=== PATIENT | female | born 1990 | race Caucasian/White ===

== ENCOUNTER 2022-11-23 06:07 | Emergency (ER) | payer OTHER, SELFPAY ==
--- NOTE | ~2022-11-23 | CT_ITS ---
EXAMINATION: CT abdomen pelvis w con DATE: 11/23/2022 07:41 INDICATION: Left upper quadrant abdominal pain, nausea TECHNIQUE: Computed tomography (CT) of the abdomen and pelvis was performed with 100 CC Omnipaque 350 intravenous contrast. Automated exposure control and iterative reconstruction technique were employe d. Exam dose: 576.67 mGy-cm total exam DLP. COMPARISON: None. FINDINGS: The lung bases are clear. Normal heart size. No pericardial or pleural effusion. Probable s mall hepatic cysts. The liver is otherwise unremarkable. The gallbladder is present and appears margo l. No bile duct or pancreatic duct dilatation. No pancreatic mass lesion or calcification. Normal spl enic size. Normal morphology of the adrenal glands. No renal mass lesion or urinary tract calculus or hydroureteronephrosis. Normal caliber of the abdominal aorta. No intraperitoneal or retroperitoneal or pelvic mass lesion or adenopathy or ascites. There is an involuting peripherally enhancing approximately 1.8 cm right ovarian cyst. The uterus and adnexal areas are otherwise unremarkable. No evidence of appendicitis is detected. There are some fluid levels in the distal ileum and proximal colon which may indicate mild enterocolitis. No bowel wall thickening, pneumatosis or intraperitonea l free air is detected. Small fat-containing umbilical hernia. IMPRESSION: Air-fluid levels of the ileum and proximal colon which may indicate mild enteritis Involuting right ovarian cyst Several small hepatic cysts Reviewed, dictated and finalized at [facility]. Reviewed, dictated and finalized at [facility]. IMPRESSION: Air-fluid levels of the ileum and proximal colon which may indicat e mild enteritis Involuting right ovarian cyst Several small hepatic cysts
[2022-11-23 06:13] VITALS: BP 119/69; PULSE 89; RESP 18; TEMP 36.2; O2SAT 98
[2022-11-23 06:52] LABS: Basophils Percent Auto 0.2 % (0.2-1.2); Eosinophils Percent Auto 0.1 % (0-4.4); Hematocrit 42.7 % (37.0-47.0); Hemoglobin 14.2 g/dL (12.0-15.0); Immature Granulocyte Absolute 0.03 K/mm3 (0.00-0.031); Immature Granulocyte Percent A 0.4 % (0-0.5); Lymphocytes Absolute Auto 0.93 K/mm3 (0.9-3.2); Lymphocytes Percent Auto 11.1 % (18.3-44.2); Mean Corpuscular HGB Conc 33.3 g/dl (32-36); Mean Corpuscular Hemoglobin 30.7 pg (26-34); Mean Corpuscular Volume 92.2 fl (80-100); Mean Platelet Volume 10.5 fl (7.4-10.4); Monocytes Absolute Auto 0.2 K/mm3 (0.1-0.6); Monocytes Percent Auto 2.4 % (2.6-8.5); Neutrophils Absolute Auto 7.2 K/mm3 (1.3-6.7); Neutrophils Percent Auto 85.8 % (45.5-73.1); Platelet Count Result 189 k/mm3 (150-375); Red Blood Count 4.63 M/mm3 (4.2-5.4); Red Cell Distribution Width 12.5 % (11.5-14.5); White Blood Count 8.4 K/mm3 (4.5-10.0)
[2022-11-23 07:02] LABS: Alanine Aminotransferase 21 U/L (6-35); Albumin Level 4.6 g/dL (3.5-5.1); Alkaline Phosphatase 76 U/L (38-126); Anion Gap 7 mmol/L (8-16); Aspartate Amino Transferase 27 U/L (14-36); Bilirubin,Total 0.6 mg/dL (0.2-1.3); Blood Urea Nitrogen 15 mg/dL (7-17); Calcium 8.4 mg/dL (8.4-10.2); Carbon Dioxide 22 mmol/L (22-30); Chloride 107 mmol/L (98-107); Estimated CRCL calculation 132 ml/min; Estimated Glomerular Filt Rate > 60; Glucose 117 mg/dL (65-110); Lipase 52 U/L (23-300); Potassium 4.2 mmol/L (3.4-5.0); Sodium 136 mmol/L (137-145)
[2022-11-23 07:04] LABS: Appearance Urine Clear (Clear); Bacteria Urine None Seen /hpf; Bilirubin Urine Negative (Negative); Blood Urine Negative (Negative); Color Urine Yellow (Yellow); Glucose Urine UA Negative (Negative); Ketones Urine 4+ mg/dL (Negative); Leukocyte Esterase Ur Negative LEU/UL (Negative); Nitrate Urine Negative (Negative); Non Pathogenic Casts 0-2; Protein Urine Trace mg/dL (Negative); Specific Grav Ur 1.032 (1.001-1.035); Squamous Epithelial Cell Urine Occasional /hpf (Few); Urobilinogen Urine 0.2 mg/dL (<2.0); WBC Urine 0-5 /hpf; pH Urine 6.5 (5.0-9.0)
--- NOTE | 2022-11-23 07:07 | ED.ABDPAIN ---
HPI - Abdominal Pain General Chief Complaint: Abdominal Pain Stated Complaint: Left abd pain/flank pain Time Seen by Provider: 11/23/22 06:57 History of Present Illness HPI narrative: This is a 32-year-old female who denies significant past medical history, presenting to the emergency department complaining of left upper quadrant abdominal pain radiating to the back for the past 12 hours. The patient states her pain began approximately 30 minutes after eating dinner. It is described as sharp, rated 8/10 at maximum 6/10 currently. She denies fevers, though complains of chills. She complains of some nausea but denies vomiting or diarrhea. She denies recent trauma, dysuria or bleeding from any source. Related Data Allergies Allergy/AdvReac Type Severity Reaction Status Date / Time No Known Allergies Verified 11/23/22 06:46 Review of Systems Review of Systems: CONSTITUTIONAL: Denies fever, chills, or sweats. CARDIOVASCULAR: Denies chest pain, palpitations, or edema. RESPIRATORY: Denies cough or dyspnea. GASTROINTESTINAL: Abdominal pain denies nausea, vomiting, or diarrhea. GENITOURINARY: Denies dysuria or hematuria. SKIN: Denies rash or itching. MUSCULOSKELETAL: Left flank pain denies joint pain, or myalgia. NEUROLOGIC: Denies headache, numbness, dizziness, or weakness. PSYCHIATRIC: Denies anxiety or depression. PMFSH Past Medical History Medical History (Updated 11/23/22 @ 09:02 by Glen Liu MD) No significant past medical history Surgical History Surgical History (Updated 11/23/22 @ 07:09 by Glen Liu MD) History of Family History Family History Father Hypertension Grandparent Hypertension Cerebrovascular accident Social History Social History (Updated 11/23/22 @ 07:09 by Glen Lui MD) Smoking status: Never smoker Second hand tobacco smoke exposure: No Alcohol intake: current Substance use: never Exam Narrative: GENERAL: Well-developed, well-nourished, and in no acute distress. HEAD: Normocephalic, atraumatic. EYES: PERRLA and EOMI. ENT: Nares clear, no rhinorrhea or epistaxis. Mucous membranes moist. Oropharynx without tonsillar hypertrophy exudate or other lesions. CHEST: Clear to auscultation. No respiratory distress. No wheezes rales or rhonchi HEART: Regular rate and rhythm. No murmur heard. Normal peripheral pulses. ABDOMEN: Soft, nontender, nondistended, normal active bowel sounds. Mild left CVA tenderness to palpation. No right CVA tenderness EXTREMITIES: Normal range of motion. No edema. SKIN: Warm, dry, no rash. NEURO: No focal deficits. Alert and oriented x3. PSYCH: Normal mood and affect. Course Course Emergency Course: 08:55 - CBC unremarkable. Chemistries unremarkable. UA not concerning for UTI and demonstrates small amount of RBCs. CT abdomen pelvis demonstrates Air-fluid levels of the ileum and proximal colon which may indicate mild enteritis. On reevaluation, the patient states her pain is improved. Will discharge with PPI and recommendation for primary care follow-up. Discussed return and emergency precautions including signs/symptoms of acute abdomen and intractable vomiting. The patient voiced understanding and is comfortable with the plan. All questions answered to her satisfaction. Vital Signs Vital signs: Vital Signs Temperature 97.1 F L 11/23/22 06:13 Pulse Rate 89 11/23/22 06:13 Respiratory Rate 18 11/23/22 06:13 Blood Pressure 119/69 11/23/22 06:13 Pulse Oximetry 98 11/23/22 06:13 Oxygen Delivery Room Air 11/23/22 06:13 Temperature 97.1 F L 11/23/22 06:13 Pulse Rate 85 11/23/22 07:46 Respiratory Rate 14 11/23/22 07:46 Blood Pressure 117/70 11/23/22 07:46 Pulse Oximetry 100 11/23/22 07:46 Oxygen Delivery Room Air 11/23/22 06:13 MDM - Abdominal Pain MDM Narrative Medical decision making narr
[2022-11-23 07:09] LABS: Pregnancy On Board Control Positive; Urine Pregnancy Test Negative
[2022-11-23 07:10] LABS: Add Urine Microscopic? YES
[2022-11-23] MEDS: MORPHINE SULFATE (*CRX) 2 MG/ML INJ IV PUSH (07:20)
[2022-11-23] MEDS: BELLADONNA ALK/PHENOB ELIX 10 ML, MAG HYDROX/ALUMINUM HYD/SIMETH 30 ML, LIDOCAINE HCL 2... PO (07:21)
[2022-11-23] MEDS: ONDANSETRON INJ 4 MG/2 ML VIAL IV PUSH (07:21)
--- NOTE | 2022-11-23 07:27 | PC.NURSE ---
Pt to CT scan via stretcher.
[2022-11-23 07:46] VITALS: BP 117/70; PULSE 85; RESP 14; O2SAT 100
[2022-11-23 09:14] VITALS: BP 127/84; PULSE 79; RESP 16; O2SAT 99
== END 2022-11-23 09:16 | disposition home or self-care (01) ==
PROVIDERS: Emergency Medicine; Emergency Provider Preventive Medicine Aerospace Medicine
DX: K52.9 Noninfective gastroenteritis and colitis, unspecified (principal); N83.201 Unspecified ovarian cyst, right side; K76.89 Other specified diseases of liver
CPT/HCPCS: 36415; 74177; 80053; 81001; 81025; 83690; 85025; 96374; 96375; 99284; A9270; J2270; J2405; Q9967

== ENCOUNTER 2025-04-30 09:06 | Emergency (ER) | payer OTHER, SELFPAY ==
[2025-04-30] VITALS (13 sets, daily range): BP systolic 131–158; BP diastolic 87–113; PULSE 98; RESP 16–17; TEMP 37.1; O2SAT 98–100
--- NOTE | ~2025-04-30 | XR_ITS ---
Examination: XR chest 2V Clinical History: htn Comparison: None Technique: PA and Lateral Findings: Cardiomediastinal silhouette normal size and configuration. Lungs clear. No acute bony abnormality. IMPRESSION: 1. No acute cardiopulmonary findings. Reviewed, dictated and finalized at [facility]. [facility] MANAGER
--- NOTE | 2025-04-30 09:18 | ECG_ITS ---
Test Date: 2025-04-30 09:28:01 Measurements Intervals [place] Rate: 91 P: 57 [place]: 130 QRS: 46 QRSD: 85 T: 22 QT: 347 QTc: 428 Interpretive Statements SINUS RHYTHM NORMAL ELECTROCARDIOGRAM No previous ECG available for comparison Electronically Signed On 05-01-2025 09:12:22 [facility] by Benja Osman M.D.
--- NOTE | 2025-04-30 09:32 | PC.NURSE ---
patient to x-ray at this time via wheelchair
[2025-04-30] MEDS: SODIUM CHLORIDE 0.9% IV 1,000 ML 999 ML IV CONT (09:42)
[2025-04-30 09:51] LABS: Alanine Aminotransferase 20 U/L (6-35); Albumin Level 4.6 g/dL (3.5-5.1); Alkaline Phosphatase 74 U/L (38-126); Anion Gap 8 mmol/L (4-12); Aspartate Amino Transferase 26 U/L (14-36); Bilirubin,Total 0.7 mg/dL (0.2-1.3); Blood Urea Nitrogen 17 mg/dL (7-17); Calcium 9.3 mg/dL (8.4-10.2); Carbon Dioxide 24 mmol/L (22-30); Chloride 105 mmol/L (98-107); Estimated CRCL calculation 98 ml/min; Estimated Glomerular Filt Rate > 60; Glucose 102 mg/dL (65-110); Potassium 4.5 mmol/L (3.4-5.0); Sodium 137 mmol/L (137-145); Total Protein 7.9 g/dL (6.3-8.2)
[2025-04-30 09:53] LABS: INR 1.0; Prothrombin Time 13.6 Seconds (11.1-14.7)
[2025-04-30 09:54] LABS: Partial Thromboplastin Time 25.0 Seconds (22.3-36.8)
[2025-04-30 09:58] LABS: Hematocrit 41.7 % (37.0-47.0); Hemoglobin 14.2 g/dL (12.0-15.0); Immature Granulocyte Percent A 0.2 % (0-0.5); Lymphocytes Absolute Auto 1.19 K/mm3 (0.9-3.2); Mean Corpuscular HGB Conc 34.1 g/dl (32-36); Mean Corpuscular Hemoglobin 30.5 pg (26-34); Mean Corpuscular Volume 89.7 fl (80-100); Nucleated Red Blood Cells Absolute Auto 0.000 K/mm3 (0.0-0.012); Nucleated Red Blood Cells Perc 0.0 % (0.0-0.2); Platelet Count Result 163 k/mm3 (150-375); Red Blood Count 4.65 M/mm3 (4.2-5.4); White Blood Count 5.7 K/mm3 (4.5-10.0)
[2025-04-30 10:02] LABS: NT Pro B Type Natriuretic Pept < 20 pg/mL (19.9-100); Troponin I < 0.012 ng/mL (0.000-0.034)
[2025-04-30 10:15] LABS: Influenza A QL RT-PCR Negative (Negative); Influenza B QL RT-PCR Negative (Negative); RSV RNA, RT-PCR Negative (Negative); SARS-CoV-2 RNA PCR Negative (Negative)
[2025-04-30 10:20] LABS: Thyroid Stimulating Hormone Reflex 3.130 uIU/mL (0.465-4.68)
--- NOTE | 2025-04-30 10:56 | ED.GENADULT ---
HPI - General Adult General Chief complaint: Recheck/Abnormal Lab/Rx Stated complaint: High Blood Pressure Time Seen by Provider: 04/30/25 09:09 History of Present Illness HPI narrative: Patient is a 35-year-old female who presents ER with concerns for elevated blood pressure. Over the last week she has developed fatigue. She has had some frontal headache. She feels like she has had occasional blurring of vision. Her systolic blood pressures been running in the 140s and her diastolic has been getting higher into the 90s and low 100s. No chest pain or chest pressure. No fevers or chills or sweats. She is not on antihypertensive medication. She reports her blood pressure been running 130s over 80s back in December and she started rechecking her blood pressures this week after feeling bad. No known sick contacts. No productive cough Related Data Allergies Allergy/AdvReac Type Severity Reaction Status Date / Time No Known Allergies Allergy Unverified 09/24/23 09:31 Review of Systems Review of Systems: All systems reviewed & are unremarkable except as noted in HPI and below Constitutional: Constitutional: Reports no additional constitutional complaints Eyes: Eyes: Reports no additional eye complaints ENT: Reports system reviewed and no additional complaints, except as documented Cardiovascular: Cardiovascular: Reports no additional cardiovascular complaints Respiratory: Respiratory: Reports no additional respiratory complaints [facility] Past Medical History Medical History No significant past medical history Surgical History Surgical History History of Family History Family History Father Hypertension Grandparent Hypertension Cerebrovascular accident Social History Social History (Updated 09/24/23 @ 09:34 by Damaris Zepeda CMA) Smoking status: Never smoker Second hand tobacco smoke exposure: No Alcohol intake: current Alcohol use details: soically Substance use: never Substance use type: does not use Lack of Transportation: No Lack of Food: Never True Current Housing: I Have Housing Concerned About Future Housing: No Difficulty Paying Gas/Electric Bills: No Difficulty Paying for Meds: No Education: Bachelor's Degree Difficulty w/ Childcare or Family Care: No Living arrangements: with family Occupation/Education: unemployed Gender identity (if verbalized by the patient): Female Sexual Orientation (if Verbalized by the Patient): Straight or Heterosexual Exam Narrative: GENERAL: Well-appearing, well-nourished, and in no acute distress. HEAD: Normocephalic, atraumatic. ENT: Mucous membranes moist. NECK: Supple. CHEST: Clear to auscultation. No respiratory distress. HEART: Regular rate and rhythm. Normal peripheral pulses. ABDOMEN: Soft, nontender, nondistended. EXTREMITIES: Normal range of motion. No edema. SKIN: Warm, dry, no rash. NEURO: clear speech, no expressive aphasia. No facial droop. Alert and oriented x3. PSYCH: Normal mood and affect. Course Course Emergency Course: Patient resting comfortably. Blood pressure 131/89 mmHg. She received Toradol for headache and IV fluid. Labs are completely normal. Patient appropriate for outpatient follow-up with PCP. We will not start an antihypertensive at this time. Vital Signs Vital signs: Vital Signs Temperature 98.7 F 04/30/25 09:10 Pulse Rate 98 04/30/25 09:10 Respiratory Rate 16 04/30/25 09:10 Blood Pressure 158/105 H 04/30/25 09:10 Pulse Oximetry 100 04/30/25 09:10 Oxygen Delivery Room Air 04/30/25 09:10 Temperature 98.7 F 04/30/25 09:10 Pulse Rate 98 04/30/25 09:10 Respiratory Rate 17 04/30/25 09:14 Blood Pressure 131/89 04/30/25 10:45 Pulse Oximetry 100 04/30/25 09:45 Oxygen Delivery Room Air 04/30/25 09:10 Medical Decision Making Differential Diagnosis Differential Diagnosis: Viral syndrome, hypothyroidism, hypertensive emergency, anxiety, migraine, intracranial hemorrhage Vital Signs Vital Signs: Vital Signs Temperature 98.7 F 04/30/25 09:10 Pulse Rate 98 04/30/25 09:10 Respiratory Rate 16 04/30/25 09:10 Blood Pressure 158/105 H 04/30/25 09:10 Pulse Oximetry 100 04/30/25 09:10 Oxygen Delivery Room Air 04/30/25 09:10 Temperature 98.7 F 04/30/25 09:10 Pulse Rate 98 04/30/25 09:10 Respiratory Rate 17 04/30/25 09:14 Blood Pressure 131/89 04/30/25 10:45 Pulse Oximetry 100 04/30/25 09:45 Oxygen Delivery Room Air 04/30/25 09:10 Lab Data 04/30/25 09:52 04/30/25 09:30 Labs: Lab Results 04/30/25 04/30/25 Range/Units 09:30 09:52 WBC 5.7 (4.5-10.0) K/mm3 RBC 4.65 (4.2-5.4) M/mm3 Hgb 14.2 (12.0-15.0) g/dL Hct 41.7 (37.0-47.0) % MCV 89.7 (80-100) fl MCH 30.5 (26-34) pg MCHC 34.1 (32-36) g/dl RDW 12.3 (11.5-14.5) % Plt Count 163 (150-375) k/mm3 MPV 10.0 (7.4-10.4) fl Immature Gran % (Auto) 0.2 (0-0.5) % Neut % (Auto) 72.2 (45.5-73.1) % Lymph % (Auto) 21.1 (18.3-44.2) % [place] % (Auto) 5.5 (2.6-8.5) % Eos % (Auto) 0.5 (0-4.4) % Baso % (Auto) 0.5 (0.2-1.2) % Lymph # (Auto) 1.19 (0.9-3.2) K/mm3 [place] # (Auto) 0.3 (0.1-0.6) K/mm3 Eos # (Auto) 0.0 (0-0.3) K/mm3 Baso # (Auto) 0.0 (0.0-0.1) K/mm3 Abs Immat Gran (auto) 0.01 (0.00-0.031) K/mm3 Absolute Neuts (auto) 4.1 (1.3-6.7) K/mm3 Absolute Nucleated RBC 0.000 (0.0-0.012) K/mm3 Nucleated RBC % 0.0 (0.0-0.2) % PT 13.6 (11.1-14.7) Seconds INR 1.0 APTT 25.0 (22.3-36.8) Seconds Sodium 137 (137-145) mmol/L Potassium 4.5 (3.4-5.0) mmol/L Chloride 105 (98-107) mmol/L Carbon Dioxide 24 (22-30) mmol/L Anion Gap 8 (4-12) mmol/L BUN 17 (7-17) mg/dL Creatinine 0.66 L (0.7-1.0) mg/dL Estim Creat Clear Calc 98 ml/min Estimated GFR > 60 (59 - ) Glucose 102 (65-110) mg/dL Calcium 9.3 (8.4-10.2) mg/dL Total Bilirubin 0.7 (0.2-1.3) mg/dL AST 26 (14-36) U/L ALT 20 (6-35) U/L Alkaline Phosphatase 74 (38-126) U/L Troponin I < 0.012 (0.000-0.034) ng/mL NT-Pro-B Natriuret Pep < 20 (19.9-100) pg/mL Total Protein 7.9 (6.3-8.2) g/dL Albumin 4.6 (3.5-5.1) g/dL TSH (Reflex) 3.130 (0.465-4.68) uIU/mL Influenza A (RT-PCR) Negative (Negative) Influenza B (RT-PCR) Negative (Negative) RSV (RT-PCR) Negative (Negative) SARS-CoV-2 RNA (RT-PCR) Negative (Negative) Imaging Data Radiologist's impression: ITS Impressions Chest X-Ray 04/30/25 09:54 IMPRESSION: 1. No acute cardiopulmonary findings. ECG Data EKG #1: ECG completion date: 04/30/25 ECG completion time: 09:28 EKG Interpretation: normal rate (91), sinus rhythm, no ectopy, no ST changes, normal QRS, normal QT and NL axis Discharge Plan Discharge Clinical Impression: Elevated blood pressure reading Patient Disposition: Home Condition: Stable Instructions: Hypertension (ED) Additional Instructions: Please return to the emergency department if you develop severe and persistent chest pain, difficulty breathing, dizziness, leg swelling or if you are coughing up blood as these can be signs of a medical emergency. Please call your doctor for a follow up appointment to determine the need for further testing. Patient Language: [place] Prescriptions: No Action drospirenone-ethinyl estradiol 3-0.02 mg tablet 1 tablet PO Q24H Qty: 112 1RF Rx Instructions: take in a continuous fashion skipping the placebo pill to skip cycles Follow-up/Referrals: Dhruv,Ave Wade APRN [Primary Care Provider, Unknown] - 1 Week
== END 2025-04-30 11:04 | disposition home or self-care (01) ==
PROVIDERS: Emergency Provider Emergency Medicine; PCP Nurse Practitioner
DX: R03.0 Elevated blood-pressure reading, without diagnosis of hypertension (principal); Z20.822 Contact with and (suspected) exposure to COVID-19
CPT/HCPCS: 36415; 71046; 80053; 83880; 84443; 84484; 85025; 85610; 85730; 87637; 93005; 96360; 99284; J7030